=== PATIENT | male | born 1950 | race American Indian/Alaskan Native ===

== ENCOUNTER 2017-01-12 21:57 | Inpatient (IN) | payer OTHER, MEDICARE ==
--- NOTE | 2017-01-12 22:50 | Emergency Department Report ---
HPI - General Chief Complaint: Neuro Symptoms/Deficit Time Seen by Provider: 01/12/17 22:17 - HPI HPI: Room 1 The patient is a 66-year-old male presenting with a chief complaint of left- sided weakness. The patient states yesterday afternoon he noticed weakness in his left upper extremity. The patient states he went to bed on a sofa at 23: 00. The patient states when he awakened at 07:30 this morning he had weakness in the left leg in addition to the left arm and was unable to get off of his couch. The patient states he eventually called friends and crawled to the door to allow them in when EMS was called and transported him to the ED. Patient denies dysarthria or dysphagia. Patient denies headache Location: [see above] Duration: Constant since yesterday afternoon Quality: Weakness Severity: Severe Modifying factors: [see above] Context: [see above] Mode of transportation: [not driving] ED Past Medical Hx - Past Medical History Previous Medical History?: No - Surgical History Past Surgical History?: Yes Additional Surgical History: hernia repair 1995 - Family History Family history: no significant - Social History Smoking Status: Never Smoker Substance Use Type: None (denies illicit drug use), Alcohol (occasional) ED Review of Systems ROS: Stated complaint: POSS CVA Other details as noted in HPI Comment: All other systems reviewed and negative Constitutional: denies: chills, fever Eyes: denies: eye pain, eye discharge, vision change ENT: denies: ear pain, throat pain Respiratory: denies: cough, shortness of breath, wheezing Cardiovascular: denies: chest pain, palpitations Endocrine: no symptoms reported Gastrointestinal: denies: abdominal pain, nausea, diarrhea Genitourinary: denies: urgency, dysuria Musculoskeletal: denies: back pain, joint swelling, arthralgia Skin: denies: rash, lesions Neurological: weakness. denies: headache Psychiatric: denies: anxiety, depression Hematological/Lymphatic: denies: easy bleeding, easy bruising Physical Exam - Physical Exam Vital Signs: Vital Signs 01/12/17 01/12/17 22:12 22:24 Temperature 98.4 F Pulse Rate 87 Respiratory 25 H Rate Blood Pressure 184/104 O2 Sat by Pulse 93 Oximetry Physical Exam: GENERAL: The patient is well-developed well-nourished male lying on stretcher with evidence of urinary incontinence. [] HEENT: Normocephalic. Atraumatic. Extraocular motions are intact. Patient has moist mucous membranes. NECK: Supple. Trachea midline CHEST/LUNGS: Clear to auscultation. There is no respiratory distress noted. HEART/CARDIOVASCULAR: Regular. There is no tachycardia. There is no gallop rub or murmur. ABDOMEN: Abdomen is soft, nontender. Patient has normal bowel sounds. There is no abdominal distention. SKIN: There is no rash. There is no edema. There is no diaphoresis. NEURO: The patient is awake, alert, and oriented. The patient is cooperative. The patient has a left facial droop and unable to shrug the left shoulder otherwise cranial nerves II through XII grossly intact. Patient is unable to raise left upper extremity off of stretcher. Patient exhibits extreme difficulty flexing left knee and hip. The patient has normal speech MUSCULOSKELETAL:There is no evidence of acute injury. ED Course Vital Signs 01/12/17 01/12/17 22:12 22:24 Temperature 98.4 F Pulse Rate 87 Respiratory 25 H Rate Blood Pressure 184/104 O2 Sat by Pulse 93 Oximetry ED Medical Decision Making - Lab Data Result diagrams: 01/12/17 22:34 01/12/17 22:34 Laboratory Tests 01/12/17 01/12/17 01/12/17 22:34 22:34 22:34 WBC 8.1 RBC 4.57 Hgb 13.7 Hct 41.0 MCV 90 MCH 30 MCHC 34 RDW 13.2 Plt Count 206 Lymph % (Auto) 10.1 L [place] % (Auto) 9.9 H Eos % (Auto) 0.1 Baso % (Auto) 0.4 Lymph # 0.8 L [place] # 0.8 Eos # 0.0 Baso # 0.0 Seg Neutrophils % 79.5 H Seg Neutrophils # 6.5 PT 14.5 INR 1.14 H APTT 24.3 Sodium 139 Potassium 3.7 Chloride 104.7 Carbon Dioxide 16 L Anion Gap 22 BUN 13 Creatinine 1.1 Estimated GFR > 60 BUN/Creatinine Ratio 11.81 Glucose 114 H Calcium 9.1 Total Creatine Kinase 812 H CK-MB (CK-2) 4.1 H CK-MB (CK-2) Rel Index 0.5 Troponin T < 0.010 NT-Pro-B Natriuret Pep 28.81 - EKG Data -: EKG Interpreted by Me EKG shows normal: sinus rhythm Rate: normal - EKG Data When compared to previous EKG there are: previous EKG unavailable Interpretation: other (no ischemic changes seen) - Radiology Data Radiology results: report reviewed (CT head (discussed with radiologist)), image reviewed (CT head) CT head (discussed with radiologist)-subacute infarct present. No hemorrhage - Differential Diagnosis CVA Critical care attestation.: If time is entered above; I have spent that time in minutes in the direct care of this critically ill patient, excluding procedure time. ED Disposition Clinical Impression: CVA (cerebral vascular accident) Disposition: DC-09 OP ADMIT IP TO THIS HOSP Is pt being admited?: Yes Does the pt Need Aspirin: Yes Condition: Serious Referrals: PRIMARY CARE, [Primary Care Provider] - 3-5 Days Time of Disposition: 23:23 (hospitalist notified)
[2017-01-12 22:52] LABS: Basophils % (Auto) 0.4 % (0.0-1.8); Eosinophils % (Auto) 0.1 % (0.0-4.3); Hemoglobin 13.7 gm/dl (11.8-15.2); Mean Corpuscular HGB Conc 34 % (32-34); Mean Corpuscular Hemoglobin 30 pg (28-32); Mean Corpuscular Volume 90 fl (84-94); Platelet Count 206 K/mm3 (140-440); Red Blood Count 4.57 M/mm3 (3.65-5.03); Red Cell Distribution Width 13.2 % (13.2-15.2); White Blood Count 8.1 K/mm3 (4.5-11.0)
[2017-01-12 23:01] LABS: INR 1.14 (0.87-1.13)
[2017-01-12 23:02] LABS: Partial Thromboplastin Time 24.3 Sec. (24.2-36.6)
[2017-01-12 23:14] LABS: Creatine Kinase MB 4.1 ng/mL (0.0-4.0)
[2017-01-12 23:15] LABS: Anion Gap 22 mmol/L; BUN/Creatinine Ratio 11.81; Blood Urea Nitrogen 13 mg/dL (9-20); Calcium 9.1 mg/dL (8.4-10.2); Carbon Dioxide 16 mmol/L (22-30); Chloride 104.7 mmol/L (98-107); Creatine Kinase 812 units/L (55-170); Glucose 114 mg/dL (75-100); Potassium 3.7 mmol/L (3.6-5.0); Sodium 139 mmol/L (137-145)
[2017-01-12] MEDS ORDERED: ASPIRIN PO ONE (23:20)
--- NOTE | 2017-01-12 23:23 | Cat Scan Report ---
FINAL REPORT PROCEDURE: CT HEAD/BRAIN WO CON TECHNIQUE: Computerized tomography of the head was performed without contrast material. HISTORY: left-sided weakness COMPARISON: No prior studies are available for comparison. FINDINGS: Skull and scalp: Normal. Paranasal sinuses: Normal. Ventricles and subarachnoid spaces: Normal. Cerebrum: There is an area of hypoattenuation identified in the right posterior frontal and upper temporal lobe consistent with subacute infarction. No hemorrhage or hematoma is seen. Mild early edema. No mass effect or midline displacement. Mild atrophy and slight periventricular deep white matter changes are noted. There is an old lacunar infarction of the right basal ganglia.. Cerebellum and brainstem: No evidence of hemorrhage, acute infarction or mass. Vasculature: Normal. Comments: None. IMPRESSION: Findings of a subacute infarction involving the right posterior frontal and upper temporal lobes. No evidence of acute hemorrhage or hematoma. There is mild atrophy and periventricular deep white matter changes. The above findings are discussed with the patient's ER physician Dr. Leon, at the time of dictation 22:16 central standard time on 01/12/2017
--- NOTE | 2017-01-13 00:01 | History and Physical Report ---
History of Present Illness Chief complaint: I feel weak on my left side History of present illness: 66 YO Male with No PMH presents to ED for evaluation. Pt states that he has experienced weakness in his left arm on the day prior to admission. Pt went to sleep at 2300 hrs on day prior to admission, and awoke at 0730 on day of admission and noticed worsening of symptoms with weakness that extended to the left leg. Pt states that he was unable to get off the couch, and called friends for assistance. Pt crawled to the door to allow EMS access to his home, and was trasnported to [facility]. Pt seen and evaluated in ED and was found to be outside therapeutic window for TPA. Past History Past Medical History: No medical history, other (reviewed) Past Surgical History: hernia repair Social history: , lives with family. denies: smoking, alcohol abuse, prescription drug abuse, IV drug use Family history: hypertension Medications and Allergies Allergies Allergy/AdvReac Type Severity Reaction Status Date / Time No Known Allergies Allergy Unverified 01/13/17 02:10 Review of Systems All systems: negative Constitutional: no weight loss Ears, nose, mouth and throat: no ear pain Cardiovascular: no chest pain Respiratory: no cough Gastrointestinal: no abdominal pain Genitourinary Male: no dysuria, no flank pain Rectal: no pain Musculoskeletal: no neck stiffness Integumentary: no rash Neurological: paralysis, weakness, numbness, gait dysfunction Psychiatric: no anxiety Endocrine: no cold intolerance Hematologic/Lymphatic: no easy bruising Allergic/Immunologic: no urticaria Exam - Constitutional Vitals: Temp Pulse Resp BP Pulse Ox 98.4 F 78 22 174/98 95 01/12/17 22:24 01/12/17 23:00 01/12/17 23:00 01/12/17 23:00 01/12/17 23:00 General appearance: Present: mild distress - EENT Eyes: Present: PERRL ENT: hearing intact, clear oral mucosa - Neck Neck: Present: supple, normal ROM - Respiratory Respiratory effort: normal Respiratory: bilateral: CTA - Cardiovascular Heart Sounds: Present: S1 & S2. Absent: rub, click - Extremities Extremities: pulses symmetrical, No edema Peripheral Pulses: within normal limits - Abdominal General gastrointestinal: Present: soft, non-tender, non-distended, normal bowel sounds Male genitourinary: Present: normal - Integumentary Integumentary: Present: clear, warm, dry - Musculoskeletal Musculoskeletal: left sided weakness - Neurologic Neurologic: no CNII-XII intact, focal deficits, no moves all extremities, no gait normal Results - Labs CBC & Chem 7: 01/12/17 22:34 01/12/17 22:34 Labs: Abnormal lab results 01/12/17 01/12/17 01/12/17 Range/Units 22:34 22:34 22:34 Lymph % (Auto) 10.1 L (13.4-35.0) % [facility] % (Auto) 9.9 H (0.0-7.3) % Lymph # 0.8 L (1.2-5.4) K/mm3 Seg Neutrophils % 79.5 H (40.0-70.0) % INR 1.14 H (0.87-1.13) Carbon Dioxide 16 L (22-30) mmol/L Glucose 114 H (75-100) mg/dL Total Creatine Kinase 812 H (55-170) units/L CK-MB (CK-2) 4.1 H (0.0-4.0) ng/mL Assessment and Plan - Patient Problems (1) CVA (cerebral vascular accident) Current Visit: Yes Status: Acute Qualifiers: CVA mechanism: C Precerebral and cerebral artery: middle cerebral artery Laterality of affected vessel: right Plan to address problem: Stroke Protocol: antiplatelet therapy, MRI/MRA, Carotid Doppler, Echo, lipid panel, speech therapy (2) Hemiparesis affecting left side as late effect of cerebrovascular accident Current Visit: Yes Status: Acute Plan to address problem: PT consulted/OT consulted. (3) Accelerated hypertension Current Visit: Yes Status: Acute Plan to address problem: Monitor BP q shift, permissive hypertension overnight, goal systolic between 180 -200 overnight. (4) DVT prophylaxis Current Visit: Yes Status: Acute
[2017-01-13] MEDS ORDERED: TYLENOL PO PRN (01:40)
[2017-01-13] MEDS ORDERED: ZOFRAN IV PRN (01:40)
[2017-01-13] MEDS ORDERED: SODIUM CHLORIDE FLUSH SYRINGE 10 ML IV PRN (01:40)
--- NOTE | 2017-01-13 09:14 | Admit Criteria Form ---
Admission Criteria Documentation: STROKE: ISCHEMIC Clinical Indications for Admission to Inpatient Care (Place 'X' for any and all applicable criteria): Admission is indicated for ANY ONE of the following(1)(2)(3)(4): [X]I. Acute stroke Extended stay beyond goal length of stay may be needed for(1)(2) [ ]a) Major deficit or clinical deterioration [ ]b) Hospital-acquired infection (eg, urinary tract infection, pneumonia) [ ]c) Embolic cause of stroke [ ]d) Venous thromboembolism(9) [ ]e) Seizures [ ]f) Bleeding (eg, cerebral) [ ]g) Increased intracranial pressure [ ]h) Comorbidities [ ]i) Surgical intervention The original [facility] content created by [employer] has been revised. The portions of the content which have been revised are identified through the use of italic text or in bold, and [facility] has neither reviewed nor approved the modified material. All other unmodified content is copyright [facility]. Please see references footnoted in the original [facility] edition 2016 Admission Criteria Met: Yes
--- NOTE | 2017-01-13 09:46 | Magnetic Resonance Report ---
MRI BRAIN WITHOUT CONTRAST INDICATION: Stroke. COMPARISON: Head CT from last night. FINDINGS: Noncontrast multiplanar and multisequence MRI of the brain demonstrates large, approximately 6.4 x 3.7 cm high right frontal MCA territory acute stroke with few smaller right parietal/watershed area infarctions as well. Slight focal sulcal effacement in this distribution with normal remainder ventricles and sulci. No acute hemorrhage, mass effect or midline shift. Mild to moderate periventricular and few white matter FLAIR and T2 weighted hyperintensities. Small right frontal periventricular 8 mm lacunar infarct again noted. Approximately 6 mm lacunar infarct in the right thalamus as well. No abnormal extra axial masses or fluid collections. Normal major intracranial vascular flow voids. Normal posterior fossa with preserved basilar cisterns. Symmetric seventh and eighth nerve complexes and eye globes. Leftward nasal septal deviation. Clear imaged paranasal sinuses and temporal bone air cells with mastoids not well pneumatized. Normal midline structures without evidence of Chiari malformation. CONCLUSION: Acute right MCA territory infarct, age appropriate atrophy and microvascular changes, as detailed above. Thank you for the opportunity to participate in this patient's care.
--- NOTE | 2017-01-13 09:57 | Magnetic Resonance Report ---
MRA HEAD WITHOUT CONTRAST INDICATION: Stroke. COMPARISON: Head CT from last night. FINDINGS: MRA of the head performed without intravenous contrast and demonstrates no evidence of vascular malformation. Please note that detection of aneurysms less than 5 mm is limited on this exam. Though M1 segments patent bilaterally centrally, its distal extent on the right and M2 branches appear slightly smaller in caliber, presumably diffuse spasm, though appear to remain grossly patent as on the source and reconstructed images with few small areas of signal dropout nonspecific for being technical versus small occlusions. Bilateral PCOMs. Patent vertebrobasilar system with dominant left and hypoplastic right vertebral artery. CONCLUSION: Right distal M1 and beyond segment arteries may exhibit spasm with few other findings, as detailed above. Please correlate. Thank you for the opportunity to participate in this patient's care.
[2017-01-13] MEDS: PLAVIX PO SCH (10:57)
--- NOTE | 2017-01-13 13:33 | Progress Note ---
Subjective Date of service: 01/13/17 Principal diagnosis: acute stroke Interval history: Assessment and plan: Acute ischemic stroke in the right middle cerebral artery territory CT of the head and MRA of the brain results reviewed Acute right middle cerebral artery area infarct in the frontal and watershed infarct in the right parietal area No TPA was administered as he was outside the window Patient has left upper extremity plegia Continue Plavix and statin Neurology consult requested Continue physical therapy and occupational therapy Speech therapy was consulted Patient denies history of hypertension or hyperlipidemia Carotid artery Doppler shows no hemodynamically significant stenosis Subjective : Patient is awake alert offers no specific complaints Denies dysphagia Denies headaches Denies fever or chills or cough Denies chest pain or shortness of breath He denies any dysuria or urinary hesitation Objective - Constitutional Vitals: Vital Signs - 12hr 01/13/17 01/13/17 01/13/17 02:00 02:30 03:00 Pulse Rate 81 80 78 Respiratory 22 21 15 Rate Blood Pressure 169/97 165/96 159/96 Blood Pressure [Right] O2 Sat by Pulse 96 92 92 Oximetry 01/13/17 01/13/17 01/13/17 03:30 04:00 04:30 Pulse Rate 80 80 78 Respiratory 22 21 21 Rate Blood Pressure 164/94 161/101 152/101 Blood Pressure [Right] O2 Sat by Pulse 85 93 94 Oximetry 01/13/17 01/13/17 01/13/17 05:00 05:30 06:00 Pulse Rate 74 74 75 Respiratory 24 19 21 Rate Blood Pressure 176/94 161/100 160/108 Blood Pressure [Right] O2 Sat by Pulse 92 95 96 Oximetry 01/13/17 01/13/17 01/13/17 06:30 07:00 07:30 Pulse Rate 75 77 79 Respiratory 18 20 22 Rate Blood Pressure 173/104 161/101 167/102 Blood Pressure [Right] O2 Sat by Pulse 95 94 95 Oximetry 01/13/17 01/13/17 01/13/17 08:00 10:30 10:51 Pulse Rate 85 71 80 Respiratory 18 Rate Blood Pressure 176/105 Blood Pressure [Right] O2 Sat by Pulse 93 Oximetry 01/13/17 01/13/17 01/13/17 10:52 11:00 11:30 Pulse Rate 80 72 82 Respiratory 16 18 21 Rate Blood Pressure 158/95 160/99 Blood Pressure 145/113 [Right] O2 Sat by Pulse 98 97 Oximetry 01/13/17 01/13/17 01/13/17 12:00 12:30 13:00 Pulse Rate 83 70 72 Respiratory 17 21 19 Rate Blood Pressure 160/99 146/77 141/87 Blood Pressure [Right] O2 Sat by Pulse 97 98 97 Oximetry General appearance: Present: no acute distress - EENT Eyes: PERRL, EOM intact ENT: hearing intact, no thrush - Neck Neck: supple, normal ROM, no masses or JVD, no carotid bruits - Respiratory Respiratory effort: normal Respiratory: bilateral: CTA - Cardiovascular Rhythm: regular Heart Sounds: Present: S1 & S2 Extremities: No edema - Gastrointestinal General gastrointestinal: Present: soft, non-tender. Absent: hepatomegaly, splenomegaly Rectal Exam: deferred - Integumentary Integumentary: clear - Musculoskeletal Musculoskeletal: left sided weakness (power in the left upper extremity 0 over 5 and in the left lower extremity it is 4 1/2 over 5) - Psychiatric Psychiatric: appropriate mood/affect - Labs CBC & Chem 7: 01/12/17 22:34 01/12/17 22:34
[2017-01-13] MEDS ORDERED: PNEUMOVAX 23 IM ONE (17:57)
[2017-01-13] MEDS: ZOCOR PO SCH (22:20)
[2017-01-14 07:15] LABS: Anion Gap 20 mmol/L; Blood Urea Nitrogen 15 mg/dL (9-20); Calcium 8.7 mg/dL (8.4-10.2); Carbon Dioxide 16 mmol/L (22-30); Chloride 103.8 mmol/L (98-107); Glucose 93 mg/dL (75-100); Potassium 3.6 mmol/L (3.6-5.0); Sodium 136 mmol/L (137-145)
--- NOTE | 2017-01-14 07:54 | Progress Note ---
<JESSICA POE - Last Filed: 01/14/17 11:24> Assessment and Plan Assessment and plan: CVA (cerebral vascular accident) CT of the brain and MRI of the brain shows acute right middle cerebral artery area infarct in the frontal and watershed infarct in the right parietal area Carotid artery Doppler shows no hemodynamically significant stenosis. No TPA was administered as he was outside the window Patient has left upper extremity plegia Continue Plavix and statin speech therapy Physical therapy ordered Occupational therapy ordered 2 Hemiparesis affecting left side as late effect of cerebrovascular accident Physical therapy ordered Occupational therapy ordered Patient is awaiting for placement for acute rehab. (3) Accelerated hypertension We continue home on the hypertensive pillis IV hydralazine for SBP >160 Closely monitor blood pressure Hyperlipidemia Continue on Statin's Discussed with the patient about the importance of low fat diet, physical execrsie, reducing intake of high fat foods to improve cardiovascular diseases. (4) DVT prophylaxis Lovenox History Interval history: Patient alert and oriented to person, place and time. Patient denies any pain or difficultly of speaking, dysphagia, headaches Hospitalist Physical - Constitutional Vitals: Temp Pulse Resp BP Pulse Ox 98.9 F 68 21 165/94 97 01/14/17 05:48 01/14/17 05:48 01/14/17 05:48 01/14/17 05:48 01/14/17 05:48 General appearance: Present: no acute distress - EENT Eyes: Present: PERRL ENT: hearing intact - Neck Neck: Present: supple - Respiratory Respiratory effort: normal Respiratory: bilateral: CTA - Cardiovascular Heart rate: 70 Rhythm: regular Heart Sounds: Present: S1 & S2 - Extremities Extremities: no ischemia, abnormal (lef upper extremity weakness) Peripheral Pulses: within normal limits - Abdominal General gastrointestinal: soft, non-tender - Integumentary Integumentary: Present: clear, warm, dry - Psychiatric Psychiatric: appropriate mood/affect - Neurologic Neurologic: CNII-XII intact, other (upper extremity weakness) - Allied Health Allied health notes reviewed: nursing Results - Labs CBC & Chem 7: 01/12/17 22:34 01/14/17 06:04 Labs: Laboratory Last Values WBC 8.1 K/mm3 (4.5-11.0) 01/12/17 22:34 RBC 4.57 M/mm3 (3.65-5.03) 01/12/17 22:34 Hgb 13.7 gm/dl (11.8-15.2) 01/12/17 22:34 Hct 41.0 % (35.5-45.6) 01/12/17 22:34 MCV 90 fl (84-94) 01/12/17 22:34 MCH 30 pg (28-32) 01/12/17 22:34 MCHC 34 % (32-34) 01/12/17 22:34 RDW 13.2 % (13.2-15.2) 01/12/17 22:34 Plt Count 206 K/mm3 (140-440) 01/12/17 22:34 Lymph % (Auto) 10.1 % (13.4-35.0) L 01/12/17 22:34 [place] % (Auto) 9.9 % (0.0-7.3) H 01/12/17 22:34 Eos % (Auto) 0.1 % (0.0-4.3) 01/12/17:34 Baso % (Auto) 0.4 % (0.0-1.8) 01/12/17 22:34 Lymph # 0.8 K/mm3 (1.2-5.4) L 01/12/17 22:34 [place] # 0.8 K/mm3 (0.0-0.8) 01/12/17 22:34 Eos # 0.0 K/mm3 (0.0-0.4) 01/12/17 22:34 Baso # 0.0 K/mm3 (0.0-0.1) 01/12/17 22:34 Seg Neutrophils % 79.5 % (40.0-70.0) H 01/12/17 22:34 Seg Neutrophils # 6.5 K/mm3 (1.8-7.7) 01/12/17 22:34 PT 14.5 Sec. (12.2-14.9) 01/12/17 22:34 INR 1.14 (0.87-1.13) H 01/12/17 22:34 APTT 24.3 Sec. (24.2-36.6) 01/12/17 22:34 Sodium 136 mmol/L (137-145) L 01/14/17 06:04 Potassium 3.6 mmol/L (3.6-5.0) 01/14/17 06:04 Chloride 103.8 mmol/L (98-107) 01/14/17 06:04 Carbon Dioxide 16 mmol/L (22-30) L 01/14/17 06:04 Anion Gap 20 mmol/L 01/14/17 06:04 BUN 15 mg/dL (9-20) 01/14/17 06:04 Creatinine 1.0 mg/dL (0.8-1.5) 01/14/17 06:04 Estimated GFR > 60 ml/min 01/14/17 06:04 BUN/Creatinine Ratio 15.00 % 01/14/17 06:04 Glucose 93 mg/dL (75-100) 01/14/17 06:04 Calcium 8.7 mg/dL (8.4-10.2) 01/14/17 06:04 Total Creatine Kinase 812 units/L (55-170) H 01/12/17 22:34 CK-MB (CK-2) 4.1 ng/mL (0.0-4.0) H 01/12/17 22:34 CK-MB (CK-2) Rel Index 0.5 (0-4) 01/12/17 22:34 Troponin T < 0.010 ng/mL (0.00-0.029) 01/12/17 22:34 NT-Pro-B Natriuret Pep 28.81 pg/mL (0-900) 01/12/17 22:34 Triglycerides 56 mg/dL (2-149) 01/14/17 06:04 Cholesterol 185 mg/dL (50-199) 01/14/17 06:04 LDL Cholesterol Direct 118 mg/dL (50-130) 01/14/17 06:04 HDL Cholesterol 56 mg/dL (40-59) 01/14/17 06:04 Cholesterol/HDL Ratio 3.30 % 01/14/17 06:04 <FERNANDO BRANTLEY - Last Filed: 01/14/17 16:32> Assessment and Plan Assessment and plan: I saw and evaluated the patient. I agree with the findings and the plan of care as documented in the Nurse Practitioner's~note, with the following corrections and additions. patient seen and examined. Left sided Hemiplegia, Presented out of the window for intervention Await placement Neurology input noted Finding discussed in detail with the patient Rehab assessment noted. Hospitalist Physical - Constitutional Vitals: Temp Pulse Resp BP Pulse Ox 97.4 F L 70 20 163/95 96 01/14/17 12:05 01/14/17 12:05 01/14/17 12:05 01/14/17 12:05 01/14/17 12:05 Results - Labs CBC & Chem 7: 01/12/17 22:34 01/14/17 06:04 Labs: Laboratory Last Values WBC 8.1 K/mm3 (4.5-11.0) 01/12/17 22:34 RBC 4.57 M/mm3 (3.65-5.03) 01/12/17 22:34 Hgb 13.7 gm/dl (11.8-15.2) 01/12/17 22:34 Hct 41.0 % (35.5-45.6) 01/12/17 22:34 MCV 90 fl (84-94) 01/12/17 22:34 MCH 30 pg (28-32) 01/12/17 22:34 MCHC 34 % (32-34) 01/12/17 22:34 RDW 13.2 % (13.2-15.2) 01/12/17 22:34 Plt Count 206 K/mm3 (140-440) 01/12/17 22:34 Lymph % (Auto) 10.1 % (13.4-35.0) L 01/12/17 22:34 [place] % (Auto) 9.9 % (0.0-7.3) H 01/12/17 22:34 Eos % (Auto) 0.1 % (0.0-4.3) 01/12/17 22:34 Baso % (Auto) 0.4 % (0.0-1.8) 01/12/17 22:34 Lymph # 0.8 K/mm3 (1.2-5.4) L 01/12/17 22:34 [place] # 0.8 K/mm3 (0.0-0.8) 01/12/17 22:34 Eos # 0.0 K/mm3 (0.0-0.4) 01/12/17 22:34 Baso # 0.0 K/mm3 (0.0-0.1) 01/12/17 22:34 Seg Neutrophils % 79.5 % (40.0-70.0) H 01/12/17 22:34 Seg Neutrophils # 6.5 K/mm3 (1.8-7.7) 01/12/17 22:34 PT 14.5 Sec. (12.2-14.9) 01/12/17 22:34 INR 1.14 (0.87-1.13) H 01/12/17 22:34 APTT 24.3 Sec. (24.2-36.6) 01/12/17 22:34 Sodium 136 mmol/L (137-145) L 01/14/17 06:04 Potassium 3.6 mmol/L (3.6-5.0) 01/14/17 06:04 Chloride 103.8 mmol/L (98-107) 01/14/17 06:04 Carbon Dioxide 16 mmol/L (22-30) L 01/14/17 06:04 Anion Gap 20 mmol/L 01/14/17 06:04 BUN 15 mg/dL (9-20) 01/14/17 06:04 Creatinine 1.0 mg/dL (0.8-1.5) 01/14/17 06:04 Estimated GFR > 60 ml/min 01/14/17 06:04 BUN/Creatinine Ratio 15.00 % 01/14/17 06:04 Glucose 93 mg/dL (75-100) 01/14/17 06:04 Calcium 8.7 mg/dL (8.4-10.2) 01/14/17 06:04 Total Creatine Kinase 812 units/L (55-170) H 01/12/17 22:34 CK-MB (CK-2) 4.1 ng/mL (0.0-4.0) H 01/12/17 22:34 CK-MB (CK-2) Rel Index 0.5 (0-4) 01/12/17 22:34 Troponin T < 0.010 ng/mL (0.00-0.029) 01/12/17 22:34 NT-Pro-B Natriuret Pep 28.81 pg/mL (0-900) 01/12/17 22:34 Triglycerides 56 mg/dL (2-149) 01/14/17 06:04 Cholesterol 185 mg/dL (50-199) 01/14/17 06:04 LDL Cholesterol Direct 118 mg/dL (50-130) 01/14/17 06:04 HDL Cholesterol 56 mg/dL (40-59) 01/14/17 06:04 Cholesterol/HDL Ratio 3.30 % 01/14/17 06:04
[2017-01-14] MEDS: PLAVIX PO SCH (09:20)
--- NOTE | 2017-01-14 13:21 | Consultation ---
History of Present Illness - Reason for Consult Consult date: 01/14/17 stroke - History of Present Illness patient seen and assessed plan to follow clear cut l;arge ischemic right MCA stroke whim is ischemic rec asa statin and HTN control no prior hx of stroke full note dictated Past History Past Medical History: No medical history, other (reviewed) Past Surgical History: hernia repair Social history: , lives with family. denies: smoking, alcohol abuse, prescription drug abuse, IV drug use Family history: hypertension Medications and Allergies Allergies Allergy/AdvReac Type Severity Reaction Status Date / Time No Known Allergies Allergy Unverified 01/13/17 02:10 Home Medications Medication Instructions Recorded Confirmed Last Taken Type No Known Home Medications [No 01/13/17 01/13/17 Unknown History Reported Home Medications] Active Meds: Active Medications Acetaminophen (Tylenol) 650 mg PO Q4H PRN PRN Reason: Pain, Mild (1-3) Clopidogrel Bisulfate (Plavix) 75 mg PO QDAY [facility] Last Admin: 01/14/17 09:20 Dose: 75 mg Ondansetron HCl (Zofran) 4 mg IV Q8H PRN PRN Reason: N/V unrelieved by Deann Simvastatin (Zocor) 20 mg PO QHS [facility] Last Admin: 01/13/17 22:20 Dose: 20 mg Sodium Chloride (Sodium Chloride Flush Syringe 10 Ml) 10 ml IV PRN PRN PRN Reason: LINE FLUSH Exam - Constitutional Vitals: Temp Pulse Resp BP Pulse Ox 98.3 F 70 18 158/96 97 01/14/17 08:40 01/14/17 08:40 01/14/17 10:00 01/14/17 08:40 01/14/17 10:00 Results - Labs CBC & Chem 7: 01/12/17 22:34 01/14/17 06:04 Labs: Abnormal lab results 01/14/17 Range/Units 06:04 Sodium 136 L (137-145) mmol/L Carbon Dioxide 16 L (22-30) mmol/L
[2017-01-14] MEDS: ZOCOR PO SCH (21:53)
--- NOTE | 2017-01-15 08:45 | Progress Note ---
Hospitalist Physical - Constitutional Vitals: Temp Pulse Resp BP Pulse Ox 98.7 F 74 18 162/85 99 01/15/17 08:00 01/15/17 08:00 01/15/17 08:00 01/15/17 08:00 01/15/17 08:00 General appearance: Present: no acute distress Results - Labs CBC & Chem 7: 01/12/17 22:34 01/14/17 06:04 Labs: Laboratory Last Values WBC 8.1 K/mm3 (4.5-11.0) 01/12/17 22:34 RBC 4.57 M/mm3 (3.65-5.03) 01/12/17 22:34 Hgb 13.7 gm/dl (11.8-15.2) 01/12/17 22:34 Hct 41.0 % (35.5-45.6) 01/12/17 22:34 MCV 90 fl (84-94) 01/12/17 22:34 MCH 30 pg (28-32) 01/12/17 22:34 MCHC 34 % (32-34) 01/12/17 22:34 RDW 13.2 % (13.2-15.2) 01/12/17 22:34 Plt Count 206 K/mm3 (140-440) 01/12/17 22:34 Lymph % (Auto) 10.1 % (13.4-35.0) L 01/12/17 22:34 Todd % (Auto) 9.9 % (0.0-7.3) H 01/12/17 22:34 Eos % (Auto) 0.1 % (0.0-4.3) 01/12/17 22:34 Baso % (Auto) 0.4 % (0.0-1.8) 01/12/17 22:34 Lymph # 0.8 K/mm3 (1.2-5.4) L 01/12/17 22:34 Todd # 0.8 K/mm3 (0.0-0.8) 01/12/17 22:34 Eos # 0.0 K/mm3 (0.0-0.4) 01/12/17 22:34 Baso # 0.0 K/mm3 (0.0-0.1) 01/12/17 22:34 Seg Neutrophils % 79.5 % (40.0-70.0) H 01/12/17 22:34 Seg Neutrophils # 6.5 K/mm3 (1.8-7.7) 01/12/17 22:34 PT 14.5 Sec. (12.2-14.9) 01/12/17 22:34 INR 1.14 (0.87-1.13) H 01/12/17 22:34 APTT 24.3 Sec. (24.2-36.6) 01/12/17 22:34 Sodium 136 mmol/L (137-145) L 01/14/17 06:04 Potassium 3.6 mmol/L (3.6-5.0) 01/14/17 06:04 Chloride 103.8 mmol/L (98-107) 01/14/17 06:04 Carbon Dioxide 16 mmol/L (22-30) L 01/14/17 06:04 Anion Gap 20 mmol/L 01/14/17 06:04 BUN 15 mg/dL (9-20) 01/14/17 06:04 Creatinine 1.0 mg/dL (0.8-1.5) 01/14/17 06:04 Estimated GFR > 60 ml/min 01/14/17 06:04 BUN/Creatinine Ratio 15.00 % 01/14/17 06:04 Glucose 93 mg/dL (75-100) 01/14/17 06:04 Calcium 8.7 mg/dL (8.4-10.2) 01/14/17 06:04 Total Creatine Kinase 812 units/L (55-170) H 01/12/17 22:34 CK-MB (CK-2) 4.1 ng/mL (0.0-4.0) H 01/12/17 22:34 CK-MB (CK-2) Rel Index 0.5 (0-4) 01/12/17 22:34 Troponin T < 0.010 ng/mL (0.00-0.029) 01/12/17 22:34 NT-Pro-B Natriuret Pep 28.81 pg/mL (0-900) 01/12/17 22:34 Triglycerides 56 mg/dL (2-149) 01/14/17 06:04 Cholesterol 185 mg/dL (50-199) 01/14/17 06:04 LDL Cholesterol Direct 118 mg/dL (50-130) 01/14/17 06:04 HDL Cholesterol 56 mg/dL (40-59) 01/14/17 06:04 Cholesterol/HDL Ratio 3.30 % 01/14/17 06:04
--- NOTE | 2017-01-15 08:46 | Discharge Summary ---
<JESSICA POE - Last Filed: 01/20/17 07:32> Providers - Providers Date of Admission: 01/13/17 01:40 Date of discharge: 01/15/17 Attending physician: FERNANDO BRANTLEY MD 01/13/17 13:23 Consult to Physician [CONS] Routine Consulting Provider: ABDULKADIR MULLINS Reason For Exam: acute stroke Notified:: please call 01/13/17 13:24 Consult to Case Management [CONS] Routine Services Needed at Discharge: Physical Therapy Occupational Therapy Notified:: shelter case manager Additional Physician Instructions: for inpatient acute rehab 01/14/17 14:24 Consult to Physician [CONS] Routine Consulting Provider: BJORN PÉREZ Reason For Exam: Acute CVA Place consult to:: yes Notified:: yes Phone number called:: yes Was contact made?: Yes If yes, spoke with:: Y Primary care physician: LORRI EASTON Hospitalization Condition: Serious Hospital course: Patient is 66 years old Male with No PMH presents to ED for evaluation. Pt states that he has experienced weakness in his left arm on the day prior to admission. Patient diagnosed with CVA, hypertension and hyperlipidemia. CT of the brain and MRI of the brain shows acute right middle cerebral artery area infarct in the frontal and watershed infarct in the right parietal area. Carotid artery Doppler shows no hemodynamically significant stenosis. No TPA was administered as he was outside the window, Patient has left upper extremity plegia. He was treated with antihypertensive, antlipid, blood thinners , IV fluid, along Physical and occupational therapy. Patient cleared by nephrology. He is being discharged on oral antihypertensive along with pain medication. Patient clinically improved and stable for discharge. Patient discharged to SNF .Patient was advised to follow up with her primary care. Diagnosis CVA Hemiparesis affecting left side as late effect of cerebrovascular accident. Hypertension Hyperlipidemia Unsteady gait Disposition: [id number] Core Measure Documentation - Palliative Care Palliative Care/ Comfort Measures: Not Applicable - Core Measures Any of the following diagnoses?: none Exam - Constitutional Vitals: Temp Pulse Resp BP Pulse Ox 98.7 F 74 18 162/85 99 01/15/17 08:00 01/15/17 08:00 01/15/17 08:00 01/15/17 08:00 01/15/17 08:00 General appearance: Present: no acute distress - EENT Eyes: Present: PERRL ENT: hearing intact - Neck Neck: Present: supple - Respiratory Respiratory effort: normal Respiratory: bilateral: CTA - Cardiovascular Rhythm: regular Heart Sounds: Present: S1 & S2 - Extremities Extremities: no ischemia Peripheral Pulses: within normal limits - Abdominal General gastrointestinal: Present: soft, non-tender Male genitourinary: Present: deferred - Rectal Rectal Exam: deferred - Integumentary Integumentary: Present: clear, warm, dry - Musculoskeletal Musculoskeletal: strength equal bilaterally - Psychiatric Psychiatric: appropriate mood/affect - Neurologic Neurologic: CNII-XII intact - Allied Health Allied health notes reviewed: nursing Plan Activity: fall precautions Weight Bearing Status: Weight Bear as Tolerated Diet: low fat, low cholesterol, low salt Follow up with: PRIMARY CARE, [Referring] - 3-5 Days Prescriptions: Hydrochlorothiazide [HCTZ] 25 mg PO QDAY #60 tablet Oxycodone HCl/Acetaminophen [Percocet 2.5/325 mg] 1 each PO Q6HR PRN #20 tablet PRN Reason: Pain <FERNANDO BRANTLEY - Last Filed: 01/29/17 12:42> Providers - Providers Date of Admission: 01/13/17 01:40 Attending physician: FERNANDO BRANTLEY MD 01/13/17 13:23 Consult to Physician [CONS] Routine Consulting Provider: ABDULKADIR MULLINS Reason For Exam: acute stroke Notified:: please call 01/13/17 13:24 Consult to Case Management [CONS] Routine Services Needed at Discharge: Physical Therapy Occupational Therapy Notified:: shelter case manager Additional Physician Instructions: for inpatient acute rehab 01/14/17 14:24 Consult to Physician [CONS] Routine Consulting Provider: BJORN PÉREZ Reason For Exam: Acute CVA Place consult to:: yes Notified:: yes Phone number called:: yes Was contact made?: Yes If yes, spoke with:: Y Primary care physician: LORRI EASTON Hospitalization Reason for admission: left arm weakness Hospital course: I saw and evaluated the patient. I agree with the findings and the plan of care as documented in the Nurse Practitioner's~note, with the following corrections and additions. ASA 325 MG PRESCRIPTION WAS CALLED IN TO BE TAKEN DAILY. This was called in on the day of discharge, Time spent for discharge: 35 mins Core Measure Documentation - Core Measures Any of the following diagnoses?: stroke - Stroke Discharge Requirements Statin for LDL = or >70 mg/dl on DC: Yes Anticoag for atrial fib/atrial flutter: Not Applicable Antithrombotic for ischemic stroke: Yes Exam - Constitutional Vitals: Temp Pulse Resp BP Pulse Ox 97.5 F L 83 18 170/94 99 01/15/17 16:00 01/15/17 16:00 01/15/17 16:00 01/15/17 16:00 01/15/17 08:00
[2017-01-15] MEDS ORDERED: HCTZ PO SCH (10:00)
[2017-01-15] MEDS: PLAVIX PO SCH (10:15)
--- NOTE | 2017-01-15 11:18 | Consultation ---
History of Present Illness - Reason for Consult Consult date: 01/15/17 Evaluate for Acute IRU - History of Present Illness 66 yo male who reports acute onset of left arm weakness and later left leg weakness that limited his ability to walk independently. CT scan of brain on admission showed subacute right posterior frontal and upper temporal lobes infarcts. Follow-up MRI of brain showed large high acute right frontal MCA CVA with right parietal and watershed infarcts. Pt has continued with left sided weakness, arm>leg and difficulty walking as noted with PT. Consult requested for post-acute placement recommendations. Past History Past Medical History: hypertension Past Surgical History: hernia repair (abdominal) Social history: , Lives alone (states /children live nearby and will be available to help). denies: smoking, alcohol abuse Family history: hypertension. denies: stroke Medications and Allergies Allergies Allergy/AdvReac Type Severity Reaction Status Date / Time No Known Allergies Allergy Unverified 01/13/17 02:10 Home Medications Medication Instructions Recorded Confirmed Last Taken Type Hydrochlorothiazide [HCTZ] 25 mg PO QDAY #30 tablet 01/15/17 Unknown Rx Hydrochlorothiazide [HCTZ] 25 mg PO QDAY #60 tablet 01/15/17 Unknown Rx Oxycodone HCl/Acetaminophen 1 each PO Q6HR PRN #20 tablet 01/15/17 Unknown Rx [Percocet 2.5/325 mg] Active Meds: Active Medications Acetaminophen (Tylenol) 650 mg PO Q4H PRN PRN Reason: Pain, Mild (1-3) Last Admin: 01/15/17 10:14 Dose: 650 mg Clopidogrel Bisulfate (Plavix) 75 mg PO QDAY [facility] Last Admin: 01/15/17 10:15 Dose: 75 mg Hydrochlorothiazide (Hctz) 25 mg PO QDAY [facility] Last Admin: 01/15/17 10:15 Dose: 25 mg Ondansetron HCl (Zofran) 4 mg IV Q8H PRN PRN Reason: N/V unrelieved by Deann Simvastatin (Zocor) 20 mg PO QHS [facility] Last Admin: 01/14/17 21:53 Dose: 20 mg Sodium Chloride (Sodium Chloride Flush Syringe 10 Ml) 10 ml IV PRN PRN PRN Reason: LINE FLUSH Review of Systems All systems: negative Ears, nose, mouth and throat: no headache Cardiovascular: no chest pain Respiratory: no cough Gastrointestinal: no nausea, no vomiting Genitourinary Male: no dysuria Musculoskeletal: low back pain (new this admission) Neurological: weakness (left extremities), gait dysfunction, no parathesias Exam - Constitutional Vitals: Vital Signs - 12hr 01/15/17 01/15/17 01/15/17 00:45 05:24 05:46 Temperature 99.4 F 98.7 F Pulse Rate 66 66 76 Respiratory 20 18 Rate Blood Pressure 162/89 158/94 O2 Sat by Pulse 97 99 Oximetry 01/15/17 08:00 Temperature 98.7 F Pulse Rate 74 Respiratory 18 Rate Blood Pressure 162/85 O2 Sat by Pulse 99 Oximetry General appearance: no acute distress, other (sitting up in bed) - EENT Eyes: EOM intact ENT: hearing intact - Neck Neck: supple, normal ROM - Respiratory Respiratory effort: normal Respiratory: bilateral: CTA - Cardiovascular Rhythm: regular Heart Sounds: Present: S1 & S2 - Extremities Extremities: No edema - Gastrointestinal General gastrointestinal: Present: soft, non-tender, non-distended, normal bowel sounds - Integumentary Integumentary: Present: clear - Musculoskeletal Musculoskeletal: left sided weakness (LUE 0/5; +tone and spasticity noted with passive ROM at the elbow; decreased ROM at left shoulder (90 degrees of forward flexion without discomfort); 3/5 LLE) - Neurologic Neurologic: CNII-XII intact, other (decreased sensation at LUE) - Psychiatric Psychiatric: appropriate mood/affect, intact judgment & insight, memory intact, cooperative - Allied health notes Allied health notes reviewed: PT (modA for transfers and gait, 15 feet x2 with FWW) FIMS assesment as documented by PT/OT/ST: Locomotion- walk/wheelchair Ambulation Distance 4 - Labs CBC & Chem 7: 01/12/17 22:34 01/14/17 06:04 Labs: Laboratory Results - last 72 hr 01/14/17 01/14/17 06:04 06:04 Sodium 136 L Potassium 3.6 Chloride 103.8 Carbon Dioxide 16 L Anion Gap 20 BUN 15 Creatinine 1.0 Estimated GFR > 60 BUN/Creatinine Ratio 15.00 Glucose 93 Calcium 8.7 Triglycerides 56 Cholesterol 185 LDL Cholesterol Direct 118 HDL Cholesterol 56 Cholesterol/HDL Ratio 3.30 - Imaging and cardiology CT Scan - head: report reviewed MRI - head: report reviewed Assessment and Plan Patient was assessed and evaluated for Acute Inpatient Rehab Unit. 66 y.o. male with acute right MCA CVA and subsequent left hemiparesis, gait dysfunction, LUE spasticity; BP control has improved since admission. Pt was educated on post-acute care options and would greatly benefit from inpatient rehabilitation course to address self cares, gait and transfer training, balance , strengthening, CVA/HTN education; ongoing medical management for HTN and spasticity. Pt has been participating well with therapies, is able to tolerate 3 hours of therapy, 5 days/week of PT/OT, and is thought to be able to make reasonable functional improvement prior to returning home. Pt was previously independent with functional mobility and self cares, lived alone, and did not require an assistive device. Pt is currently requiring moderate assistance with transfers and ambulation using a walker during PT sessions. Pt is continent of bowel and bladder. Pt would be best served in an IRU setting as he is motivated to participate, has active impairments in mobility, balance, strength; active medical conditions that will continue to be addressed by a rehab physician (at minimum 3 days/week) including HTN and spasticity. Pt has good overall medical prognosis and has good family support at discharge. Pt will likely require pre-certification prior to IPR admission which will be addressed by case management. Will continue to follow. Thank you for consultation. Recommendations: may discharge to Acute Inpatient Rehab Unit pending bed availability - Patient Problems (1) Acute right MCA stroke Current Visit: Yes Status: Acute (2) Hemiparesis affecting left side as late effect of cerebrovascular accident Current Visit: Yes Status: Acute (3) Unsteady gait Current Visit: Yes Status: Acute (4) Accelerated hypertension Current Visit: Yes Status: Acute (5) Muscle spasticity Current Visit: Yes Status: Acute
--- NOTE | 2017-01-15 13:33 | Consultation ---
HISTORY OF PRESENT ILLNESS: A 66-year-old black male presents to the [facility] as an acute admission for complaint of left-sided weakness that began yesterday; therefore, he is not a TPA candidate. Denied dysphagia, headache, apparently crawled on the floor. EMS transported the patient. He has prior medical history of hypertension, who was not taking medication by his history: Denies prior history of diabetes. On admission, his blood pressure was 184/104, he was seen in the ED. CT scan initially showed ischemic infarct in the right cerebral hemisphere. His hematocrit was 41, his ___. His creatinine was 1.1. Sodium is 139, potassium 4.7. The patient was assessed. MRI scan was done showing ischemic stroke in the right cerebral hemisphere in the right middle MCA territory probably ischemic related hypertension. SOCIAL HISTORY: He is not . Behzad not smoke, does not drink. ALLERGIES: He has no known allergies. PHYSICAL EXAMINATION: VITAL SIGNS: Blood pressure to be184/105, pulse rate 86, respirations 18. NEUROLOGIC: Cranial nerves 2-12 shows central facial droop on the left side, he has right gaze preference. He is swallowing quite well. In fact, he is eating his lunch, he does not have any choking or aspiration. He has a dense hemiparesis involving face, arm, and leg on the left side. He is able to be aware of his hemiparesis. He has no denial. He has no right parietal lobe syndrome findings such as neglect, denial, or inability to recognize his weakness. His opinion polls survey worker strength is good on the right side, in the right leg, right arm and the right face moves well. He does not have any aphasia. No seizure activity is present. Carotid pulsations are 2+. IMPRESSION: Acute stroke, right cerebral hemisphere, right MCA territory related to poorly controlled blood pressure. Would recommend aspirin, statin therapy, hypertension control. He probably will need short-term rehabilitation for physical therapy. JOB# [id number] JEREMY/NTS
--- NOTE | 2017-01-15 15:21 | Progress Note ---
Assessment and Plan Assessment and plan: AMASSMENT/PLAN 1. CVA (cerebral vascular accident) CT of the brain and MRI of the brain shows acute right middle cerebral artery area infarct in the frontal and watershed infarct in the right parietal area Carotid artery Doppler shows no hemodynamically significant stenosis. No TPA was administered as he was outside the window Patient has left upper extremity plegia Continue Plavix and statin speech therapy Physical therapy on board Occupational therapyon board Patient awaiting for SNF placement. 2 Hemiparesis affecting left side as late effect of cerebrovascular accident Physical therapy ordered Occupational therapy ordered Patient is awaiting for placement for acute rehab. (3) Accelerated hypertension We continue home on the hypertensive pillis IV hydralazine for SBP >160 Closely monitor blood pressure Hyperlipidemia Continue on Statin's Discussed with the patient about the importance of low fat diet, physical execrsie, reducing intake of high fat foods to improve cardiovascular diseases. (4) DVT prophylaxis Lovenox History Interval history: Patient complains chronic lower back pain, he rated his pain level 4/10 Hospitalist Physical - Constitutional Vitals: Temp Pulse Resp BP Pulse Ox 98.8 F 77 18 163/85 99 01/15/17 12:00 01/15/17 12:00 01/15/17 12:00 01/15/17 12:00 01/15/17 08:00 General appearance: Present: no acute distress - EENT Eyes: Present: PERRL ENT: hearing intact, clear oral mucosa - Neck Neck: Present: supple - Respiratory Respiratory effort: normal Respiratory: bilateral: CTA - Cardiovascular Heart rate: 77 Rhythm: regular Heart Sounds: Present: S1 & S2 - Extremities Extremities: no ischemia, abnormal (left upper extremity weakness) Peripheral Pulses: within normal limits - Abdominal General gastrointestinal: soft, non-tender - Integumentary Integumentary: Present: clear, warm, dry - Psychiatric Psychiatric: appropriate mood/affect - Neurologic Neurologic: CNII-XII intact, moves all extremities (lower lower extremity weakness) - Allied Health Allied health notes reviewed: nursing Results - Labs CBC & Chem 7: 01/12/17 22:34 01/14/17 06:04 Labs: Laboratory Last Values WBC 8.1 K/mm3 (4.5-11.0) 01/12/17 22:34 RBC 4.57 M/mm3 (3.65-5.03) 01/12/17 22:34 Hgb 13.7 gm/dl (11.8-15.2) 01/12/17 22:34 Hct 41.0 % (35.5-45.6) 01/12/17 22:34 MCV 90 fl (84-94) 01/12/17 22:34 MCH 30 pg (28-32) 01/12/17 22:34 MCHC 34 % (32-34) 01/12/17 22:34 RDW 13.2 % (13.2-15.2) 01/12/17 22:34 Plt Count 206 K/mm3 (140-440) 01/12/17 22:34 Lymph % (Auto) 10.1 % (13.4-35.0) L 01/12/17 22:34 [place] % (Auto) 9.9 % (0.0-7.3) H 01/12/17 22:34 Eos % (Auto) 0.1 % (0.0-4.3) 01/12/17:34 Baso % (Auto) 0.4 % (0.0-1.8) 01/12/17 22:34 Lymph # 0.8 K/mm3 (1.2-5.4) L 01/12/17 22:34 [place] # 0.8 K/mm3 (0.0-0.8) 01/12/17 22:34 Eos # 0.0 K/mm3 (0.0-0.4) 01/12/17 22:34 Baso # 0.0 K/mm3 (0.0-0.1) 01/12/17 22:34 Seg Neutrophils % 79.5 % (40.0-70.0) H 01/12/17 22:34 Seg Neutrophils # 6.5 K/mm3 (1.8-7.7) 01/12/17 22:34 PT 14.5 Sec. (12.2-14.9) 01/12/17 22:34 INR 1.14 (0.87-1.13) H 01/12/17 22:34 APTT 24.3 Sec. (24.2-36.6) 01/12/17 22:34 Sodium 136 mmol/L (137-145) L 01/14/17 06:04 Potassium 3.6 mmol/L (3.6-5.0) 01/14/17 06:04 Chloride 103.8 mmol/L (98-107) 01/14/17 06:04 Carbon Dioxide 16 mmol/L (22-30) L 01/14/17 06:04 Anion Gap 20 mmol/L 01/14/17 06:04 BUN 15 mg/dL (9-20) 01/14/17 06:04 Creatinine 1.0 mg/dL (0.8-1.5) 01/14/17 06:04 Estimated GFR > 60 ml/min 01/14/17 06:04 BUN/Creatinine Ratio 15.00 % 01/14/17 06:04 Glucose 93 mg/dL (75-100) 01/14/17 06:04 Calcium 8.7 mg/dL (8.4-10.2) 01/14/17 06:04 Total Creatine Kinase 812 units/L (55-170) H 01/12/17 22:34 CK-MB (CK-2) 4.1 ng/mL (0.0-4.0) H 01/12/17 22:34 CK-MB (CK-2) Rel Index 0.5 (0-4) 01/12/17 22:34 Troponin T < 0.010 ng/mL (0.00-0.029) 01/12/17 22:34 NT-Pro-B Natriuret Pep 28.81 pg/mL (0-900) 01/12/17 22:34 Triglycerides 56 mg/dL (2-149) 01/14/17 06:04 Cholesterol 185 mg/dL (50-199) 01/14/17 06:04 LDL Cholesterol Direct 118 mg/dL (50-130) 01/14/17 06:04 HDL Cholesterol 56 mg/dL (40-59) 01/14/17 06:04 Cholesterol/HDL Ratio 3.30 % 01/14/17 06:04
[2017-01-15 17:32] VITALS: BP 170/94
--- NOTE | 2017-01-17 10:22 | Vascular Lab Report ---
CAROTID DUPLEX STUDY: RIGHT PSVEDV CCA PROX:[id number] CCA DIST: 9822 ICA PROX: 6813 ICA MID: 6420 ICA DIST: 6927 ECA: 79 VERT: 39 9 LEFT PSVEDV CCA PROX: 9620 CCA DIST:[id number] ICA PROX: 6314 ICA MID: 5623 ICA DIST: 5424 ECA: 100 VERT: 51 14 REASON FOR EXAM: Stroke. COMMENTS ON THE RIGHT: Doppler frequency analysis is consistent with 16 to 49 percent diameter reduction of the internal carotid artery. Minimal amount of plaque is seen. The common carotid artery is patent. The external carotid artery is patent. The vertebral artery has antegrade flow. COMMENTS ON THE LEFT: Doppler frequency analysis is consistent with 16 to 49 percent diameter reduction of the internal carotid artery. Minimal amount of plaque is seen. The common carotid artery is patent. The external carotid artery is patent. The vertebral artery has antegrade flow. IMPRESSION: Less than 50% diameter reduction in the internal carotid arteries bilaterally. Consider repeat carotid artery duplex in 12 months.
== END 2017-01-15 18:28 | DRG 65 ==
LOC: ED 21:57 → 4A 01-13 01:40
PROVIDERS: ADMIT Internal Medicine; ATTEND Internal Medicine
PROC: 3E0234Z Introduction of Serum, Toxoid and Vaccine into Muscle, Percutaneous Approach (ICD-10-PCS; principal; 2017-01-13)
DX: I63.9 Cerebral infarction, unspecified (principal); I69.354 Hemiplegia and hemiparesis following cerebral infarction affecting left non-dominant side; I10 Essential (primary) hypertension; E78.5 Hyperlipidemia, unspecified; R26.9 Unspecified abnormalities of gait and mobility; M62.838 Other muscle spasm; Z82.49 Family history of ischemic heart disease and other diseases of the circulatory system; Z23 Encounter for immunization
CPT/HCPCS: 36415; 70450; 70544; 70551; 80048; 80061; 82550; 82553; 83880; 84484; 85025; 85610; 85730; 90732; 93005; 93010; 93306; 93880